=== PATIENT | male | born 1955 | race Caucasian/White ===

== ENCOUNTER → 2020-08-11 08:11 | Outpatient (CLI) | payer OTHER, SELFPAY ==
[2020-08-11] MEDS: COVID-19 VACC #1, MRNA(MOD) 100 MCG/0.5 ML VIAL IM (08:18)
== END ==
PROVIDERS: Visit Provider Internal Medicine
DX: Z23 Encounter for immunization (principal)
CPT/HCPCS: 0011A; 91301

== ENCOUNTER → 2020-09-08 08:00 | Outpatient (CLI) | payer OTHER, SELFPAY ==
[2020-09-08] MEDS: COVID-19 VACC #2, MRNA(MOD) 100 MCG/0.5 ML VIAL IM (08:06)
== END ==
PROVIDERS: Visit Provider Internal Medicine
DX: Z23 Encounter for immunization (principal)
CPT/HCPCS: 0012A; 91301

== ENCOUNTER → 2023-07-22 11:09 | Outpatient (CLI) | payer OTHER, SELFPAY ==
--- NOTE | 2023-07-22 11:14 | DI.US.S_ITS ---
PROCEDURE: US SOFT TISSUE HEAD AND NECK INDICATIONS: SOFT TISSUE MASS OF NECK/CHIN TECHNIQUE: Real-time scanning was performed of the neck region of interest, with image documentation. COMPARISON: None. FINDINGS: Sonographic images of the neck demonstrate multiple scattered lymph nodes. They are slightly more numerous than expected. However, they are not considered pathologically enlarged by size criteria. There is loss of fatty hilum. IMPRESSION: Subcentimeter lymph nodes as above. Despite not being pathologically enlarged, there is loss of fatty hilum. Short interval follow-up for CT neck with contrast is recommended for further evaluation. Dictated by: Kathleen Childs M.D. on 07/22/2023 at 16:50 Approved by: Kathleen Childs M.D. on 07/22/2023 at 16:50
== END ==
PROVIDERS: PCP Family Medicine; Referring Provider Family Medicine; Visit Provider Family Medicine
DX: R22.1 Localized swelling, mass and lump, neck (principal)
CPT/HCPCS: 76536

== ENCOUNTER → 2023-11-06 08:48 | Outpatient (CLI) | payer OTHER, SELFPAY ==
--- NOTE | 2023-11-06 08:50 | DI.CT.S_ITS ---
PROCEDURE: CT SOFT TISSUE NECK W CON INDICATIONS: SWELLING/LUMP/MASS IN NECK TECHNIQUE: After the administration of intravenous contrast, 3.0 mm axial sections acquired from the sella to the aortic arch. Additional oblique axial 3.0 mm sections acquired through the pharynx. 3 mm thick coronal and sagittal reformats were generated. For radiation dose reduction, the following was used: automated exposure control. COMPARISON: Merged with [facility], SOFT TISSUE HEAD AND NECK, 07/22/2023, 10:37. FINDINGS: Image quality: Excellent. Lymph nodes: No enlarged lymph nodes seen throughout the neck. Vessels: Visualized vasculature appears patent. Atherosclerotic vascular calcifications. Mild smooth wall thickening of the bilateral common carotid and internal carotid arteries. Neck spaces: Deep to the marker on the left lateral neck is an 8 x 6 mm nodule superficial to the platysma (2/48). The oropharynx, nasopharynx, and pharynx demonstrate no mucosal lesions. The vocal cords, false vocal cords, pyriform sinuses, epiglottis, vallecula, and tongue base all appear normal. Glands: The parotid and submandibular glands appear normal. Thyroid gland is heterogeneous with multiple nodules including a 2.6 cm right thyroid lobe nodule. Miscellaneous: Visualized brain and orbits appear normal. Lung apices appear clear. Superficial soft tissues appear normal. Bones: No suspicious bony lesions. Mild mucosal thickening of the maxillary sinuses. Right maxillary sinus mucous retention cysts. Frothy secretions in the right maxillary sinus.. IMPRESSION: Subcutaneous nodule deep to the marker in the left lateral neck measuring up to 8 mm. This is an atypical location for lymph nodes and has a different appearance than other lymph nodes in the neck. Differential includes an abnormal lymph node versus other subcutaneous nodule. Clinical correlation follow-up is recommended and consider follow-up ultrasound to assess stability. No other enlarged lymph nodes are seen within the neck. Thyroid nodules measure up to 2.6 cm. Recommend dedicated thyroid ultrasound if not previously obtained. Mild diffuse smooth wall thickening of the bilateral common and internal carotid arteries, nonspecific and etiologies such as vasculitis are not excluded. Dictated by: Basilio Holman M.D. on 11/06/2023 at 10:39 Approved by: Basilio Holman M.D. on 11/06/2023 at 10:48
== END ==
LOC: CT 08:48
PROVIDERS: PCP Family Medicine; Referring Provider Family Medicine; Visit Provider Family Medicine
DX: R22.1 Localized swelling, mass and lump, neck (principal); E04.2 Nontoxic multinodular goiter
CPT/HCPCS: 70491; Q9967

== ENCOUNTER → 2023-12-05 08:39 | Outpatient (CLI) | payer OTHER, SELFPAY ==
--- NOTE | 2023-12-05 08:40 | DI.US.S_ITS ---
PROCEDURE: US THYROID INDICATIONS: F/U 2.8mm NODULE RT THYROID TECHNIQUE: Real-time scanning was performed of the thyroid gland, with image documentation. COMPARISON: None. FINDINGS: Thyroid: Right lobe measures 4.7 x 2.2 x 2.5 cm. Left lobe measures 4.6 x 1.8 x 2.2 cm. Isthmus is 6.2 cm thick. Echotexture is mildly heterogenous. Nodule number: 1 Location: Right mid lobe. Size: 3.9 x 2.2 x 2.2 cm. Composition: Predominantly solid. Echogenicity: Isoechoic/hypoechoic. Shape: Wider than tall Margins: Smooth Echogenic foci: None Total points: 4 ACR TI-RADS category: 4 Nodule number: 2 Location: Left inferior Size: 1.2 x 1.3 x 1.8 Composition: Solid Echogenicity: Hyperechoic Shape: Wider than tall Margins: Smooth Echogenic foci: Punctate/macro Total points: 7 ACR TI-RADS category: 5 IMPRESSION: Bilateral nodules, both are suspicious for neoplasm, left greater than right. ACR TI-RADS definitions and recommendations: TI-RADS 1 (benign): 0 points. FNA not needed. TI-RADS 2 (not suspicious): 2 points. FNA not needed. TI-RADS 3 (mildly suspicious): 3 points. * FNA if 2.5 cm or larger, follow up if 1.5 cm or larger (at 1, 3, and 5 years). TI-RADS 4 (moderately suspicious): 4-6 points. * FNA if 1.5 cm or larger, follow up if 1 cm or larger (at 1, 2, 3, and 5 years). TI-RADS 5 (highly suspicious): 7 points or more. * FNA if 1 cm or larger, follow up if 0.5 cm or larger (every year for 5 years). Dictated by: Carl Hernandez M.D. on 12/05/2023 at 15:26 Approved by: Carl Hernandez M.D. on 12/05/2023 at 15:53
== END ==
PROVIDERS: PCP Family Medicine; Referring Provider Family Medicine; Visit Provider Family Medicine
DX: E04.2 Nontoxic multinodular goiter (principal)
CPT/HCPCS: 76536

== ENCOUNTER → 2023-12-23 14:15 | Outpatient (CLI) | payer OTHER, SELFPAY ==
--- NOTE | 2023-12-23 | PATH_ITS ---
Note [facility] Accession Number: [id number] TESTS RESULT FLAG UNITS REF RANGE LAB Clinician Provided Cytology Information No. of containers..01 Other (Miscellaneous) No. of containers..04 Previously Prepared Cytology Slide Source: RIGHT THYROID NODULE #1 DIAGNOSIS: RIGHT THYROID NODULE #1 NEGATIVE FOR MALIGNANT CELLS. B[place] CATEGORY II. SPECIMEN CONSISTS OF ABUNDANT BENIGN FOLLICULAR CELLS, HEMOSIDERIN-LADEN MACROPHAGES, SCANT COLLOID AND BLOOD. 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 COMMENT: The aspirate is mildly cellular and consists of a mixture of macro and microfollicles, some colloid, and scattered hemosiderin-laden macrophages. Few scattered larger cells with hurthle cell change are seen, however, are in a background of many benign-appearing follicles with small nuclei. Dr. Sara Giang (cytopathologist) reviwed this case and concurs with the diagnosis. Pathologist ICD10: 01 E04.1 Signed out by: Nomra Fry MD, Pathologist NPI- [id number] Performed by: Navarro Abdul, Wood Crew Supervisor ([facility]) Gross description: 01 30 CC, PINK, CLEAR RECIEVED: IN CYTOLYT WITH 7 ALCOHOL FIXED AND 7 QUICK STAINED SLIDES ALSO 1 RNA VIAL WILL ON 05-21-2024.VO /VDU 12/24/2023 [facility] FLAG LEGEND: L-Low Normal,H-High Normal,LL-Alert Low,HH-Alert High <-Panic Low,>-Panic High,A-Abnormal,AA-Critical Abnormal Performed at: [address] [facility], [place] [address] Roly Wisdom MD, Performed at: [address] [address], [place], [place] [id number] MD Roly Wisdom MD Phone: [phone]
--- NOTE | 2023-12-23 14:16 | DI.US.S_ITS ---
PROCEDURE: US FINE NEEDLE ASPIRATION INDICATIONS: THYROID NODULES TECHNIQUE: The indications, alternatives, benefits, risks, and complications of the procedure were explained to the patient. Written informed consent was obtained and placed in the chart. The thyroid region was examined sonographically and a site was chosen for ultrasound guided percutaneous sampling. The skin was prepared and draped in the usual fashion, and anesthetized with 1% lidocaine infiltrated from the skin down to the thyroid gland. Multiple passes were then performed, with contents emptied into an appropriate pathology specimen container. A bandage was applied to the area of access at completion of the study. COMPARISON: None. FINDINGS: Location(s) of lesion(s) sampled: 1 Vass: 25 gauge hypodermic needles. Number of passes: 5 Medications: 1% lidocaine for local anaesthesia. Complications: None. IMPRESSION: Successful ultrasound-guided thyroid nodule fine needle aspiration, with cytology results pending. Please see chart below for management recommendations based on cytology results. [facility] ReportingRecommendationsNon-diagnostic* Repeat US-guided FNA, with on-site cytology evaluation if possible. * Repeated non-diagnostic nodules without high suspicion US features: close observation vs surgical consult. * Consider surgery if nodule has high suspicion US features, grows >20% in 2 dimensions on followup, or patient has clinical risk factors for malignancy. Benign* If nodule has high suspicion US features: repeat US and FNA within 12 months. * If nodule has low to intermediate suspicion US features: repeat US at 12-24 months. If nodule grows (20% increase in at least 2 dimensions, with minimal increase of 2 mm or >50% change in volume), or development of new suspicious US features, then repeat FNA or continue followup. * If nodule has very low suspicion US features: followup US at >24 months. Atypia of undetermined significance, follicular lesion of undetermined significanceRepeat FNA, molecular testing, followup US, or surgical consult.Follicular neoplasm, suspicious for follicular neoplasmSurgical consult; also consider molecular testing. Suspicious for malignancySurgical consult.MalignantSurgical consult. Dictated by: Caleb Do M.D. on 12/23/2023 at 17:01 Approved by: Caleb Do M.D. on 12/23/2023 at 17:02
== END ==
LOC: US 14:15
PROVIDERS: PCP Family Medicine; Referring Provider Family Medicine; Visit Provider Family Medicine
DX: E04.1 Nontoxic single thyroid nodule (principal); R22.9 Localized swelling, mass and lump, unspecified
CPT/HCPCS: 10005

== ENCOUNTER → 2025-01-20 15:40 | Outpatient (CLI) | payer OTHER, SELFPAY ==
--- NOTE | 2025-01-20 15:42 | DI.RAD.S_ITS ---
PROCEDURE: XR HIP W PEL IF DONE LT 2V INDICATIONS: LEFT HIP PAIN TECHNIQUE: Two views of the hip were acquired. COMPARISON: None. FINDINGS: Bones: Bilateral CAM configuration femoral head neck junction predispose to femoral acetabular impingement and labral tear SI and hip joints: Mild bilateral hip and SI degeneration noted. Mild L5-S1 degenerative disc and facet disease Soft tissues: No soft tissue swelling, calcification or mass. IMPRESSION: Chronic findings as described Dictated by: Gio Candelario M.D. on 01/21/2025 at 11:17 Approved by: Gio Candelario M.D. on 01/21/2025 at 11:18
== END ==
LOC: RAD 15:41
PROVIDERS: PCP Family Medicine; Referring Provider Family Medicine; Visit Provider Family Medicine
DX: M16.0 Bilateral primary osteoarthritis of hip (principal); M51.379 Other intervertebral disc degeneration, lumbosacral region without mention of lumbar back pain or lower extremity pain; M47.817 Spondylosis without myelopathy or radiculopathy, lumbosacral region; M25.552 Pain in left hip
CPT/HCPCS: 73502